=== PATIENT | male | born 2005 | race Caucasian/White ===

== ENCOUNTER 2024-04-07 00:39 | Emergency (ER) | payer BC ==
[~2024-04-07] VITALS: Ht 185.4 cm; Wt 72.7 kg
[2024-04-07 00:41] VITALS: BP 147/84; PULSE 70; TEMP 98.8
[2024-04-07] MEDS ORDERED: Ofloxacin 0.3% Ophth/Otic Soln 5 ML BOTTLE OT ONE (01:45)
== END 2024-04-07 01:58 | disposition home or self-care (01) ==
LOC: COL.ER 00:39
DX: H61.23 Impacted cerumen, bilateral (principal); H60.93 Unspecified otitis externa, bilateral